=== PATIENT | female | born 1950 | race Caucasian/White ===

== ENCOUNTER → 2016-05-02 | Outpatient (CLI) | payer MEDICARE ==
[~2016-05-02] MED LIST: AC500T PO; ATEN-156 PO; CEPH500C PO; FURO20TA4 PO; GMFB600T PO; HCT25T PO; MUPI15CR11; POTA10TA10 PO; POTA10TA36 PO; TOPI25TA10 PO
--- NOTE | 2016-05-09 08:47 | ELECTROENCEPHALOPATHY REPORT ---
PROCEDURE PHYSICIAN: MORRIS DRAKE DATE OF PROCEDURE: 05/02/2016 Ms. April Martinez is a 65-year-old female. 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 Her growth reportedly was stunted but the patient grew up normally with normal cognitive activity. In the past 6 months, the patient seems to be deep sleep and the patient has loss of time. The patient is arousable but the patient is sleeping more than usual. The patient's balance is declining rapidly. The background rhythm consisted of 9 Hz, 55 to 70 microvolts in amplitude, bilaterally symmetrical. Intermixed were sharp waves in both anterior quadrant of brain (s/l et brain). Some movement and muscle artifacts were present. The patient was awake, drowsy and asleep during this recording. Hyperventilation was performed and there was mild diffuse slow activity. Intermittent photic stimulation was performed and no photic driving response was seen. IMPRESSION: This EEG is abnormal in awake and sleepy states. The abnormal brain activity described above is suggestive epileptiform activity. Clinical correlation is suggested. Job ID: [id number] Dictated Date: 05/08/2016 15:29:20 [employer]itor Date: 05/09/2016 08:42:27 / monica
== END ==
LOC: RT 09:29
PROVIDERS: ATTEND Family Medicine
DX: R55 Syncope and collapse (principal)
CPT/HCPCS: 95819

== ENCOUNTER 2016-08-14 13:54 | Emergency (ER) | payer MEDICARE ==
[~2016-08-14] VITALS: Ht 160 cm; Wt 81.6 kg
[~2016-08-14 13:54] MED LIST changes: -CEPH500C PO; -MUPI15CR11; -POTA10TA10 PO; -TOPI25TA10 PO
[2016-08-14] MEDS ORDERED: TOPI25TA10 PO (14:43)
[2016-08-14] MEDS ORDERED: MUPI15CR11 (14:43)
[2016-08-14] MEDS ORDERED: CEPH500C PO (14:43)
[2016-08-14 15:15] LABS: BASOPHILS # (AUTO) 0.1 10^3/uL (0.0-0.1); BASOPHILS % (AUTO) 1 % (0-10); EOSINOPHILS # (AUTO) 0.1 10^3/uL (0.0-0.3); EOSINOPHILS % (AUTO) 2 % (0-10); LYMPHOCYTES # (AUTO) 1.6 X 10^3 (1.0-4.0); LYMPHOCYTES % (AUTO) 20 % (12-44); MEAN CORPUSCULAR HEMOGLOBIN 31 PG (25-34); MEAN CORPUSCULAR HGB CONC 34 G/DL (32-36); MEAN CORPUSCULAR VOLUME 91 FL (80-99); MONOCYTES # (AUTO) 1.1 X 10^3 (0.0-1.0); MONOCYTES % (AUTO) 14 % (0-12); NEUTROPHILS # (AUTO) 4.9 X 10^3 (1.8-7.8); NEUTROPHILS % (AUTO) 64 % (42-75); PLATELET COUNT 496 10^3/uL (130-400); RED BLOOD COUNT 4.38 10^6/uL (4.35-5.85); RED CELL DISTRIBUTION WIDTH 14.9 % (10.0-14.5); WHITE BLOOD COUNT 7.7 10^3/uL (4.3-11.0)
[2016-08-14 15:32] LABS: BILIRUBIN,TOTAL 0.3 MG/DL (0.1-1.0); CALCIUM 10.1 MG/DL (8.5-10.1); CREATININE SERUM 1.31 MG/DL (0.60-1.30); TOTAL PROTEIN 7.4 G/DL (6.4-8.2)
[2016-08-14 15:33] LABS: POTASSIUM 2.4 MMOL/L (3.6-5.0)
[2016-08-14 15:42] LABS: BILIRUBIN,URINE NEGATIVE (NEGATIVE); KETONES,URINE NEGATIVE (NEGATIVE); LEUKOCYTE ESTERASE ,URINE 3+ (NEGATIVE); NITRITE,URINE NEGATIVE (NEGATIVE); PH,URINE 5 (5-9); PROTEIN,URINE 1+ (NEGATIVE); UROBILINOGEN,URINE NORMAL (NORMAL)
[2016-08-14 15:54] LABS: SQUAMOUS EPITHELIAL CELL,UR 0-2 /HPF
--- NOTE | 2016-08-14 16:30 | ED General ---
General Chief Complaint: General Problems/Pain Stated Complaint: UNABLE TO WALK Nursing Triage Note: c/o increasing weakness over the past 6 month. Pt slid to the ground this morning but did not hurt herself. Nursing Sepsis Screen: No Definite Risk Source of Information: Patient, Family Exam Limitations: No Limitations History of Present Illness Time Seen by Provider: 16:25 Initial Comments The patient's a 65-year-old white female known to me for a period of 20 years or more. She was brought to the emergency room by her brother with the observation of increasing weakness and inability to walk. 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 She ultimately developed Charcot feet and has had some difficulty walking and pressure sores to the soles of her feet. This has been improved by the use of podiatric care postoperative boots. This morning she was scarcely able to get out of bed. Her brother enlisted the help of a neighbor they were able to get her to the car and bring her here. Timing/Duration: 1 Week Allergies and Home Medications Allergies Coded Allergies: iodine (Unverified Allergy, 03/26/12) Uncoded Allergies: PCN (Allergy, 03/26/12) Home Medications Acetaminophen 500 Mg Tablet, 500 MG PO q 6hrs, #2 (Reported) Atenolol 50 Mg Tablet, 50 MG PO DAILY, (Reported) Cephalexin 500 Mg Capsule, 500 MG PO TID, #30 (Reported) Furosemide 20 Mg Tablet, 1 EACH PO DAILY, (Reported) Gemfibrozil 600 Mg Tab, 600 MG PO BID, (Reported) Hydrochlorothiazide 25 Mg Tab, 50 MG PO DAILY, (Reported) Mupirocin Calcium 15 Gm Cream..g., #45 (Reported) Potassium Chloride 10 Meq Tab.prt.sr, 1 EACH PO DAILY WITH MEAL, (Reported) Topiramate 25 Mg Tablet, 25 MG PO DAILY, #120 (Reported) Constitutional: see HPI EENTM: no symptoms reported Respiratory: no symptoms reported Cardiovascular: no symptoms reported Gastrointestinal: no symptoms reported Genitourinary: no symptoms reported Musculoskeletal: muscle weakness (arms and legs) Psychiatric/Neurological: No Symptoms Reported Hematologic/Lymphatic: No Symptoms Reported Immunological/Allergic: no symptoms reported Past Bxyqznq-[id number]-Ylszcr Hx Patient Social History Alcohol Use: Denies Use Recreational Drug Use: No Smoking Status: Never a Smoker Recent Foreign Travel: No Contact w/Someone Who Travel: No Recent Infectious Disease Expo: No Immunizations Up To Date Date of Influenza Vaccine: Dec 26, 2011 Surgeries Surgeries: Hysterectomy Respiratory Hx Respiratory Disorders: No Cardiovascular Hx Cardiac Disorders: No Neurological Hx Neurological Disorders: Yes (MENINGITIS/ENCEPALITIS A CHILD) Gastrointestinal Hx Gastrointestinal Disorders: No Musculoskeletal Hx Musculoskeletal Disorders: No Endocrine Hx Endocrine Disorders: No Cancer Cancer: Melanoma Blood Transfusions Adverse Reaction to a Blood Tr: No Physical Exam Vital Signs Vital Sign - Last 12Hours 08/14/16 14:28 Temp 97.5 Pulse 105 Resp 18 B/P (MAP) 125/73 O2 Delivery Room Air Capillary Refill : Less Than 3 Seconds General Appearance: No Apparent Distress Eyes: Bilateral Eye Normal Inspection HEENT: Normal ENT Inspection Neck: Full Range of Motion, Normal Inspection, Non Tender, Supple, Carotid Bruit Respiratory: Chest Non Tender, Lungs Clear, Normal Breath Sounds, No Accessory Muscle Use, No Respiratory Distress Cardiovascular: Regular Rate, Rhythm, No Edema, No Gallop, No JVD, No Murmur, Normal Peripheral Pulses Gastrointestinal: Normal Bowel Sounds, No Organomegaly, No Pulsatile Mass, Non Tender, Soft Back: Normal Inspection, No CVA Tenderness, No Vertebral Tenderness Extremity: Other (decreased muscle mass) Neurologic/Psychiatric: Alert, Oriented x3, No Motor/Sensory Deficits, Normal Mood/Affect, Other (a rather rambling historian with a description of her many cats including their names) Lymphatic: No Adenopathy Comments 1+ biceps and triceps. Unable to straight leg lift with either leg. Progress/Results/Core Measures Results/Orders Lab Results Laboratory Tests Test 08/14/16 15:00 08/14/16 15:35 Range/Units White Blood Count 7.7 4.3-11.0 10^3/uL Red Blood Count 4.38 4.35-5.85 10^6/uL Hemoglobin 13.4 11.5-16.0 G/DL Hematocrit 40 35-52 % Mean Corpuscular Volume 91 80-99 FL Mean Corpuscular Hemoglobin 31 25-34 PG Mean Corpuscular Hemoglobin Concent 34 32-36 G/DL Red Cell Distribution Width 14.9 H 10.0-14.5 % Platelet Count 496 H 130-400 10^3/uL Mean Platelet Volume 9.0 7.4-10.4 FL Neutrophils (%) (Auto) 64 42-75 % Lymphocytes (%) (Auto) 20 12-44 % Monocytes (%) (Auto) 14 H 0-12 % Eosinophils (%) (Auto) 2 0-10 % Basophils (%) (Auto) 1 0-10 % Neutrophils # (Auto) 4.9 1.8-7.8 X 10^3 Lymphocytes # (Auto) 1.6 1.0-4.0 X 10^3 Monocytes # (Auto) 1.1 H 0.0-1.0 X 10^3 Eosinophils # (Auto) 0.1 0.0-0.3 10^3/uL Basophils # (Auto) 0.1 0.0-0.1 10^3/uL Sodium Level 139 135-145 MMOL/L Potassium Level 2.4 *L 3.6-5.0 MMOL/L Chloride Level 98 98-107 MMOL/L Carbon Dioxide Level 25 21-32 MMOL/L Anion Gap 16 H 5-14 MMOL/L Blood Urea Nitrogen 13 7-18 MG/DL Creatinine 1.31 H 0.60-1.30 MG/DL Estimat Glomerular Filtration Rate 41 BUN/Creatinine Ratio 10 Glucose Level 84 70-105 MG/DL Calcium Level 10.1 8.5-10.1 MG/DL Total Bilirubin 0.3 0.1-1.0 MG/DL Aspartate Amino Transf (AST/SGOT) 36 H 5-34 U/L Alanine Aminotransferase (ALT/SGPT) 24 0-55 U/L Alkaline Phosphatase 73 40-136 U/L Total Protein 7.4 6.4-8.2 G/DL Albumin 4.0 3.2-4.5 G/DL TSH [place] Testing 1.31 0.35-4.94 UIU/ML Urine Color YELLOW Urine Clarity CLEAR Urine pH 5 5-9 Urine Specific [place] 1.015 L 1.016-1.022 Urine Protein 1+ H NEGATIVE Urine Glucose (UA) NEGATIVE NEGATIVE Urine Ketones NEGATIVE NEGATIVE Urine Nitrite NEGATIVE NEGATIVE Urine Bilirubin NEGATIVE NEGATIVE Urine Urobilinogen NORMAL NORMAL MG/DL Urine Leukocyte Esterase 3+ H NEGATIVE Urine RBC (Auto) 2+ H NEGATIVE Urine RBC 0-2 /HPF Urine WBC 10-25 H /HPF Urine Squamous Epithelial Cells 0-2 /HPF Urine Crystals NONE /LPF Urine Bacteria TRACE /HPF Urine Casts NONE /LPF Urine Mucus NEGATIVE /LPF Urine Culture Indicated YES My Orders Orders - VIJI CONTE MD Cbc With Automated Diff (08/14/16 14:53) Comprehensive Metabolic Panel (08/14/16 14:53) Thyroid Analyzer (08/14/16 14:53) Ua Culture If Indicated (08/14/16 14:53) Urine Culture (08/14/16 15:35) Vital Signs/I&O Vital Sign - Last 12Hours 08/14/16 14:28 Temp 97.5 Pulse 105 Resp 18 B/P (MAP) 125/73 O2 Delivery Room Air Blood Pressure Mean: 90 Departure Communication Progress Notes The potassium was discovered to be 2.4. The patient's brother cleared up some confusion as the patient had denied taking either hydrochlorothiazide or Lasix as she had previously. He states that she in fact is still taking the hydrochlorothiazide. Her potassium was recently discontinued. Impression Impression: Primary Impression: Hypokalemia due to loss of potassium Disposition: 01 HOME, SELF-CARE Condition: Stable/Unchanged Departure-Patient Inst. Decision time for Depature: 16:41 Referrals: ASHLEY FRANCIS MD (PCP/Family) Primary Care Physician Add. Discharge Instructions: All discharge instructions reviewed with patient and/or family. Voiced understanding. Take 20 mEq of potassium daily until Thursday and then get a repeat electrolyte study. If you still have the 10 mEq potassium at home this represents one twice daily. I have also written a prescription for additional 2010 mEq potassium tablets. Scripts Potassium Chloride (Potassium Chloride) 10 Meq Tablet.er 10 MEQ PO BID, #60 TAB Prov: VIJI CONTE MD 08/14/16 VIJI CONTE MD August 14, 2016 16:30
[2016-08-14] MEDS ORDERED: POTA10TA10 PO (16:44)
[2016-08-14 17:18] VITALS: BP 124/72
== END 2016-08-14 17:18 | disposition home or self-care (01) ==
LOC: EDUNIT# 13:54 → ER 13:57
DX: E87.6 Hypokalemia (principal); R26.0 Ataxic gait; Z79.899 Other long term (current) drug therapy
CPT/HCPCS: 36415; 80053; 81000; 84443; 85025; 87088; 99283